=== PATIENT | male | born 1950 | race Caucasian/White ===

== ENCOUNTER 2019-04-21 06:30 | Emergency (ER) | payer MEDICARE ==
[~2019-04-21] VITALS: Ht 167.6 cm; Wt 75.6 kg
[~2019-04-21 06:30] MED LIST: AMLO-150 PO; APIX5TAB PO; ASPI-496 PO; LORA10TA75 PO; OMEP-110 PO; SIMV40TA3 PO
[2019-04-21] MEDS ORDERED: SODIUM CHLORIDE FLUSH 10ML SYR IVF ONE (07:00)
[2019-04-21] MEDS ORDERED: DILTIAZEM 5 MG/ML, 5ML IV ONE (07:00)
[2019-04-21] MEDS ORDERED: RANI150C PO (07:00)
[2019-04-21] MEDS ORDERED: ATOR-2 PO (07:01)
[2019-04-21] MEDS ORDERED: APIX5TAB PO (07:01)
--- NOTE | 2019-04-21 07:01 | NUR ---
PATIENT PRESENTS TO ED TODAY FOR CHEST TIGHTNESS AND RAPID HR STARTING YESTERDAY MORNING, PATIENT REPORTS HX AFIB WITH CARDIOVERSION 7 YEARS AGO. 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
[2019-04-21] MEDS ORDERED: DILTIAZEM 5 MG/ML, 5ML ONE (07:16)
[2019-04-21 07:23] LABS: BASOPHILS # (AUTO) 0.03 x10^3/uL (0-0.1); BASOPHILS % (AUTO) 1 % (0-1); EOSINOPHILS # (AUTO) 0.22 x10^3/uL (0-0.4); EOSINOPHILS % (AUTO) 4 % (1-7); LYMPHOCYTES # (AUTO) 1.71 x10^3/uL (1-3.4); LYMPHOCYTES % (AUTO) 30 % (22-44); MD NO; MEAN CORPUSCULAR HEMOGLOBIN 28.7 pg (27.5-34.5); MEAN CORPUSCULAR HGB CONC 33.6 g/dL (33.2-36.2); MEAN CORPUSCULAR VOLUME 85.5 fL (81-97); MEAN PLATELET VOLUME 8.8 fL (7.4-10.4); MONOCYTES # (AUTO) 0.61 x10^3/uL (0.2-0.8); MONOCYTES % (AUTO) 11 % (2-9); NEUTROPHILS # (AUTO) 3.22 x10^3/uL (1.8-6.8); NEUTROPHILS % (AUTO) 56 % (42-75); PLATELET COUNT 237 x10^3/uL (130-400); RED BLOOD COUNT 5.44 x10^6/uL (4.38-5.82); RED CELL DISTRIBUTION WIDTH 13.4 % (9.4-14.8)
[2019-04-21 07:32] LABS: ALANINE AMINOTRANSFERASE 23 U/L (12-78); ALBUMIN 3.5 g/dL (3.4-5.0); ANION GAP 8 mmol/L (5-15); CALCIUM 8.6 mg/dL (8.5-10.1); CHLORIDE 109 mmol/L (98-107); CREATININE 1.26 mg/dL (0.7-1.3)
[2019-04-21 07:35] LABS: ALKALINE PHOSPHATASE 115 U/L (45-117); BILIRUBIN,TOTAL 1.3 mg/dL (0.2-1.0); TOTAL PROTEIN 6.7 g/dL (6.4-8.2); TROPONIN I < 0.015 ng/mL (0.000-0.045)
--- NOTE | 2019-04-21 07:40 | NUR ---
PATIENT'S HR DROPPED TO 95 AND IS BACK UP TO 117, MD AWARE. AWAITING LABS PRIOR TO CARDIOLOGY CONSULT. PATIENT RESTING IN GURNEY, WARM BLANKET PROVIDED, LIGHTS OFF. NADN. AWAITING LAB RESULTS.
--- NOTE | 2019-04-21 08:27 | NUR ---
DR BRADFORD AT BEDSIDE, 0.5MG DIGOXIN TO BE ORDERED, VS UPDATED IN CHART, PATIENT TO HAVE CARDIOVERSION. NADN AT THIS TIME, RESP EVEN/UNLABORED.
[2019-04-21] MEDS ORDERED: PROPOFOL 10 MG/ML, 20ML IVPush ONE (08:30)
[2019-04-21] MEDS ORDERED: DIGOXIN 0.25 MG/ML, 2ML ONE (08:34)
[2019-04-21] MEDS ORDERED: PROPOFOL 10 MG/ML, 20ML ONE (08:34)
--- NOTE | 2019-04-21 08:42 | NUR ---
DIGOXIN ADMINISTERED PER ORDER, AWAITING FURTHER ORDERS PRIOR TO SYNCHRONIZED CARDIOVERSION. NADN. A+OX4.
[2019-04-21] MEDS ORDERED: DIGOXIN 0.25 MG/ML, 2ML IVPush ONE (09:00)
--- NOTE | 2019-04-21 09:03 | NUR ---
CONSENT FORM SIGNED AND PLACED IN CHART, 70MG PROPOFOL ADMINISTERED AT [address] RINCON, TIME OUT PERFORMED, PROCEDURE START TIME AT 0859 FOR SYNCHRONIZED CARDIOVERSION WITH SUCCESS, 200J. HR NOW 50'S-60'S. VS UPDATED IN CHART, PATIENT AWAKE AT 0905. PATIENT SITTING IN GURNEY, RESP EVEN/UNLABORED, A+OX4. AWAITING FURTHER ORDERS.
--- NOTE | 2019-04-21 09:40 | NUR ---
MD AT BEDSIDE, PATIENT TO BE DC'D. PATIENT SITTING IN [facility] AND UPDATED IN CHART. HR REMAINS IN THE 60'S. NADN. RESP EVEN/UNLABORED. AWAITING DC PAPERWORK.
[2019-04-21 09:57] VITALS: BP 127/79
== END 2019-04-21 10:02 | disposition home or self-care (01) ==
LOC: ED 06:48
DX: I48.20 Chronic atrial fibrillation, unspecified (principal); I10 Essential (primary) hypertension
CPT/HCPCS: 36415; 71045; 80053; 84484; 85025; 92960; 93005; 96374; 96375; 99291; J1160; J2704

== ENCOUNTER 2019-05-14 14:43 | Emergency (ER) | payer MEDICARE ==
[~2019-05-14] VITALS: Ht 167.6 cm; Wt 79.2 kg
[~2019-05-14 14:43] MED LIST changes: +ATOR-2 PO; +RANI150C PO
[2019-05-14 14:54] VITALS: BP 147/91
[2019-05-14 15:28] LABS: BASOPHILS # (AUTO) 0.03 x10^3/uL (0-0.1); BASOPHILS % (AUTO) 1 % (0-1); EOSINOPHILS # (AUTO) 0.16 x10^3/uL (0-0.4); EOSINOPHILS % (AUTO) 3 % (1-7); LYMPHOCYTES # (AUTO) 1.65 x10^3/uL (1-3.4); LYMPHOCYTES % (AUTO) 30 % (22-44); MD NO; MEAN CORPUSCULAR HEMOGLOBIN 29.3 pg (27.5-34.5); MEAN CORPUSCULAR HGB CONC 33.9 g/dL (33.2-36.2); MEAN CORPUSCULAR VOLUME 86.4 fL (81-97); MEAN PLATELET VOLUME 8.8 fL (7.4-10.4); MONOCYTES # (AUTO) 0.43 x10^3/uL (0.2-0.8); MONOCYTES % (AUTO) 8 % (2-9); NEUTROPHILS # (AUTO) 3.31 x10^3/uL (1.8-6.8); NEUTROPHILS % (AUTO) 59 % (42-75); PLATELET COUNT 229 x10^3/uL (130-400); RED BLOOD COUNT 5.26 x10^6/uL (4.38-5.82); RED CELL DISTRIBUTION WIDTH 13.3 % (9.4-14.8)
[2019-05-14 15:38] LABS: ALBUMIN 3.5 g/dL (3.4-5.0); ANION GAP 5 mmol/L (5-15); CALCIUM 8.6 mg/dL (8.5-10.1); CHLORIDE 109 mmol/L (98-107); CREATININE 1.16 mg/dL (0.7-1.3)
--- NOTE | 2019-05-14 15:46 | NUR ---
ALL LAB RESULTS BACK, PT FOR RECHECK.
--- NOTE | 2019-05-14 16:48 | NUR ---
PT RESTING, NAD, AWAITING MD TO SEE. CALL LIGHT WITHIN REACH.
--- NOTE | 2019-05-14 16:52 | NUR ---
BREAK RN FOR PRIMARY RN MARILYN. DR. DEL CID AT BEDSIDE DISCUSSING POC AND TEST RESULTS.
== END 2019-05-14 17:22 | disposition home or self-care (01) ==
LOC: ED 17:10
DX: R60.0 Localized edema (principal); I10 Essential (primary) hypertension; I48.92 Unspecified atrial flutter
CPT/HCPCS: 36415; 71045; 80048; 82040; 83880; 85025; 93005; 99284

== ENCOUNTER 2019-07-28 11:41 | Emergency (ER) | payer MEDICARE ==
[~2019-07-28] VITALS: Ht 167.6 cm; Wt 80.0 kg
[~2019-07-28 11:41] MED LIST changes: +SIMV40TA20 PO; -SIMV40TA3 PO
[2019-07-28] MEDS ORDERED: ASPIRIN 81 MG TABLET CHEW PO ONE (12:00)
--- NOTE | 2019-07-28 12:00 | NUR ---
pt reading in bed, no complaints of pain, call light in reach.
[2019-07-28] MEDS ORDERED: ASPIRIN 81 MG TABLET CHEW ONE (12:28)
[2019-07-28 12:30] LABS: BASOPHILS # (AUTO) 0.05 x10^3/uL (0-0.1); BASOPHILS % (AUTO) 1 % (0-1); EOSINOPHILS # (AUTO) 0.81 x10^3/uL (0-0.4); EOSINOPHILS % (AUTO) 11 % (1-7); LYMPHOCYTES # (AUTO) 1.98 x10^3/uL (1-3.4); LYMPHOCYTES % (AUTO) 26 % (22-44); MD NO; MEAN CORPUSCULAR HEMOGLOBIN 28.9 pg (27.5-34.5); MEAN PLATELET VOLUME 9.2 fL (7.4-10.4); MONOCYTES # (AUTO) 0.57 x10^3/uL (0.2-0.8); MONOCYTES % (AUTO) 7 % (2-9); NEUTROPHILS # (AUTO) 4.31 x10^3/uL (1.8-6.8); NEUTROPHILS % (AUTO) 56 % (42-75); PLATELET COUNT 223 x10^3/uL (130-400); RED BLOOD COUNT 5.16 x10^6/uL (4.38-5.82); RED CELL DISTRIBUTION WIDTH 13.7 % (9.4-14.8)
[2019-07-28 12:36] LABS: ALANINE AMINOTRANSFERASE 26 U/L (12-78); ALBUMIN 3.3 g/dL (3.4-5.0); ANION GAP 6 mmol/L (5-15); CALCIUM 8.3 mg/dL (8.5-10.1); CHLORIDE 110 mmol/L (98-107); CREATININE 1.33 mg/dL (0.7-1.3)
[2019-07-28 12:39] LABS: ALKALINE PHOSPHATASE 130 U/L (45-117); TOTAL PROTEIN 6.8 g/dL (6.4-8.2); TROPONIN I < 0.015 ng/mL (0.000-0.045)
[2019-07-28] MEDS ORDERED: OMEP-110 PO (13:16)
--- NOTE | 2019-07-28 13:19 | NUR ---
all results back, pt resting comfortably in bed. vs stable.
[2019-07-28 14:03] VITALS: BP 107/71
--- NOTE | 2019-07-28 14:03 | NUR ---
GENESIS RN: DISCHARGED PT FOR PRIMARY RN. PT DENIES CP AT THIS TIME. 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 PT TO RETURN IF SYMPTOMS COME BACK.
== END 2019-07-28 14:05 | disposition home or self-care (01) ==
LOC: ED 13:59
DX: L03.116 Cellulitis of left lower limb (principal); L03.115 Cellulitis of right lower limb; R07.2 Precordial pain; I10 Essential (primary) hypertension
CPT/HCPCS: 36415; 71045; 80053; 84484; 85025; 93005; 99285

== ENCOUNTER 2019-08-04 06:57 | Observation (INO) | payer MEDICARE ==
[~2019-08-04] VITALS: Ht 167.6 cm; Wt 86.6 kg
--- NOTE | 2019-08-04 07:42 | NUR ---
68 Y/O MALE PRESENTS TO ED WITH C/O HTN. PER PT "I TOOK MY BP THIS MORNING AND IT 171/114. I JUST GOT WORRIED. I DON'T HAVE ANY CHEST PAIN RIGHT NOW, BUT I HAVE OFF AND ON." PT PLACED ON CONT PULSE OX,NIBP, STORE RECEIVING CLERK. NADN. NO C/O N/V/D, TRAUMA, SYNCOPE, CP OR SOB.
[2019-08-04] MEDS ORDERED: ASPIRIN 81 MG TABLET EC ONE (07:47)
[2019-08-04] MEDS ORDERED: ASPIRIN 81 MG TABLET CHEW ONE (07:50)
[2019-08-04] MEDS ORDERED: ASPIRIN 81 MG TABLET CHEW PO ONE (08:00)
[2019-08-04] MEDS ORDERED: SODIUM CHLORIDE FLUSH 10ML SYR IVF ONE (08:00)
[2019-08-04 08:01] LABS: MEAN CORPUSCULAR HGB CONC 33.7 g/dL (33.2-36.2); MEAN PLATELET VOLUME 8.8 fL (7.4-10.4); PLATELET COUNT 214 x10^3/uL (130-400); RED BLOOD COUNT 5.06 x10^6/uL (4.38-5.82); RED CELL DISTRIBUTION WIDTH 13.9 % (9.4-14.8)
[2019-08-04 08:13] LABS: ALANINE AMINOTRANSFERASE 27 U/L (12-78); ALBUMIN 3.4 g/dL (3.4-5.0); ANION GAP 5 mmol/L (5-15); CALCIUM 8.5 mg/dL (8.5-10.1); CHLORIDE 110 mmol/L (98-107); CREATININE 1.34 mg/dL (0.7-1.3)
[2019-08-04 08:17] LABS: ALKALINE PHOSPHATASE 121 U/L (45-117); BILIRUBIN,TOTAL 0.8 mg/dL (0.2-1.0); TOTAL PROTEIN 6.5 g/dL (6.4-8.2); TROPONIN I < 0.015 ng/mL (0.000-0.045)
[2019-08-04 08:31] LABS: BASOPHILS # (AUTO) 0.04 x10^3/uL (0-0.1); BASOPHILS % (AUTO) 1 % (0-1); EOSINOPHILS # (AUTO) 1.82 x10^3/uL (0-0.4); EOSINOPHILS % (AUTO) 26 % (1-7); LYMPHOCYTES # (AUTO) 1.76 x10^3/uL (1-3.4); LYMPHOCYTES % (AUTO) 25 % (22-44); MD SCAN; MONOCYTES # (AUTO) 0.47 x10^3/uL (0.2-0.8); MONOCYTES % (AUTO) 7 % (2-9); NEUTROPHILS # (AUTO) 3.02 x10^3/uL (1.8-6.8); NEUTROPHILS % (AUTO) 43 % (42-75)
--- NOTE | 2019-08-04 09:32 | NUR ---
LATE ENTRY FOR 0825 PT RESTING ON TRUPTI. NADN. NO C/O CP AT THIS TIME. NO NEEDS REQUESTED AT THIS TIME.
--- NOTE | 2019-08-04 09:33 | NUR ---
PT CONTINUES TO REST ON [place]. PT EDUCATED REGARDING POC. PT HESITANT ON ADMISSION. WILL SPEAK TO EDMD.
[2019-08-04] MEDS ORDERED: LISI-170 PO (09:48)
[2019-08-04] MEDS ORDERED: NITROGLYCERIN 0.4 MG BOTTLE (25 TABS) SL PRN (10:00)
[2019-08-04] MEDS ORDERED: LISINOPRIL 10 MG TABLET PO SCH (10:00)
[2019-08-04] MEDS ORDERED: NITROGLYCERIN 0.4 MG/SPRAY SL PRN (10:00)
[2019-08-04 10:43] LABS: CHOL/HDL RATIO 2.7; LDL/HDL RATIO 1.4 (0.5-3.0)
--- NOTE | 2019-08-04 10:43 | NUR ---
PT TRANSFERRED TO FLOOR. PT LEFT WITH ALL PERSONAL BELONGINGS.
[2019-08-04 11:00] VITALS: BP 156/72
[2019-08-04 13:06] VITALS: BP 128/82
[2019-08-04 13:22] LABS: TROPONIN I < 0.015 ng/mL (0.000-0.045)
[2019-08-04 15:43] LABS: TROPONIN I < 0.015 ng/mL (0.000-0.045)
[2019-08-04 19:56] LABS: MICROSCOPIC NOT IND
[2019-08-04 19:57] VITALS: BP 146/77
[2019-08-04 20:03] LABS: CULTURE INDICATED? NO
[2019-08-04] MEDS: APIXABAN 5 MG TABLET PO SCH (20:10)
[2019-08-04] MEDS: SODIUM CHLORIDE FLUSH 10ML SYR IVF SCH (20:11)
[2019-08-04] MEDS ORDERED: ATORVASTATIN 20 MG TABLET PO SCH (21:00)
[2019-08-05 03:39] VITALS: BP 127/83
[2019-08-05 05:39] LABS: ANION GAP 6 mmol/L (5-15); CALCIUM 7.7 mg/dL (8.5-10.1); CHLORIDE 110 mmol/L (98-107); CREATININE 1.32 mg/dL (0.7-1.3)
[2019-08-05 07:22] VITALS: BP 131/81
[2019-08-05] MEDS ORDERED: AMLODIPINE 5 MG TABLET PO SCH (09:00)
[2019-08-05] MEDS ORDERED: LORATADINE 10 MG TABLET PO SCH (09:00)
[2019-08-05] MEDS ORDERED: OMEPRAZOLE 20 MG CAPSULE.DR PO SCH (09:00)
[2019-08-05] MEDS: APIXABAN 5 MG TABLET PO SCH (09:34)
[2019-08-05] MEDS: SODIUM CHLORIDE FLUSH 10ML SYR IVF SCH (09:35)
[2019-08-05] MEDS ORDERED: PANT40TA3 PO (12:28)
== END 2019-08-05 13:27 | disposition home or self-care (01) ==
LOC: ED 08:46 → EDIP 09:05 → INTOOBSV 09:05 → 5SO 10:40 → DCLOUNGE 08-05 13:13
PROVIDERS: ADMIT Internal Medicine; ATTEND Hospitalist
DX: I48.0 Paroxysmal atrial fibrillation (principal); R07.89 Other chest pain; R94.4 Abnormal results of kidney function studies; I10 Essential (primary) hypertension; D68.69 Other thrombophilia; E78.5 Hyperlipidemia, unspecified; R21 Rash and other nonspecific skin eruption; Z79.01 Long term (current) use of anticoagulants; Z79.899 Other long term (current) drug therapy
CPT/HCPCS: 36415; 71045; 80048; 80053; 80061; 81003; 84443; 84484; 85025; 93005; 93017; 93306; 99285; G0378; Q0177